=== PATIENT | male | born 1995 ===

== ENCOUNTER 2018-11-01 20:50 | Emergency (ER) | payer BC ==
[2018-11-01] MEDS ORDERED: Lidocaine 1% MPF ** 5 ML VIAL INJ ONE (21:11)
--- NOTE | 2018-11-01 21:27 | UC ---
Laceration HPI - HPI Summary HPI Summary: Patient is a 23yo male presenting with a left hand laceration that happened one hour ago while cutting tomatoes. Patient states it bled immediately but was able to stop within a few minutes. Denies pain. Denies decreased ROM. Denies decreased sensation. Denies numbness and tingling. He is unsure of his last tetanus booster and would like one today. - History Of Current Complaint Chief Complaint: UCLaceration Stated Complaint: HAND LACERATION Time Seen by Provider: 11/01/18 20:53 Hx Obtained From: Patient Severity: Mild Pain Intensity: 0 Pain Scale Used: 0-10 Numeric - Allergies/Home Medications Allergies/Adverse Reactions: Allergies Allergy/AdvReac Type Severity Reaction Status Date / Time No Known Allergies Allergy Verified 11/01/18 21:00 Home Medications: Home Medications NK [No Home Medications Reported] 11/01/18 [History Confirmed 11/01/18] PMH/Surg Hx/FS Hx/Imm Hx Previously Healthy: Yes - Surgical History Surgical History: Yes Surgery Procedure, Year, and Place: hernia repair - Family History Known Family History: Positive: Non-Contributory - Social History Occupation: Student Alcohol Use: Occasionally Substance Use Type: None Smoking Status (MU): Never Smoked Tobacco - Immunization History Most Recent Tetanus Shot: unknown Review of Systems All Other Systems Reviewed And Are Negative: No Constitutional: Positive: Negative Skin: Positive: Other - laceration to left palm Respiratory: Positive: Negative Cardiovascular: Positive: Negative Motor: Positive: Negative. Negative: Decreased ROM, Weakness Neurovascular: Positive: Negative. Negative: Decreased Sensation, Decreased Pulses Musculoskeletal: Positive: Negative. Negative: Arthralgia, Decreased ROM, Edema , Myalgia Neurological: Positive: Negative. Negative: Weakness, Paresthesia, Numbness Psychological: Positive: Negative Physical Exam Triage Information Reviewed: Yes Appearance: Well-Appearing, No Pain Distress, Well-Nourished Vital Signs: Initial Vital Signs Temp 98.5 F 11/01/18 20:56 Pulse 58 11/01/18 20:56 Resp 16 11/01/18 20:56 BP 116/72 11/01/18 20:56 Pulse Ox 100 11/01/18 20:56 Vital Signs Reviewed: Yes Eyes: Positive: Conjunctiva Clear ENT: Positive: Hearing grossly normal Neck: Positive: Supple Respiratory: Positive: No respiratory distress Cardiovascular: Positive: Pulses Normal, Brisk Capillary Refill Musculoskeletal Exam: Normal Musculoskeletal: Positive: Strength Intact, ROM Intact, No Edema Neurological: Positive: Alert Psychological Exam: Normal Psychological: Positive: Age Appropriate Behavior Skin Exam: Other - 1.5cm linear laceration noted on palmar surface of left hand. bleeding has stopped. Laceration Repair - Laceration Repair 1 Procedure Summary: Patient tolerated procedure well. Description: Linear Laceration Size After Repair: Length (cm) - 1.5 Type Injection: Local Anesthesia Used: 1.0% Lido Cleansing Completed Via Routine Prep: Yes Closure Material: Sutures - 2 sutures Closure Method: Single Layer Suture Of: Skin Suture Type: Prolene - 5-0 Laceration Course/Dx - Course/Dx Course Of Treatment: Patient received 2 sutures in his left palm. Discussed with patient to keep sutures clean and dry. Told to return or go to [facility] in 7-10 days for suture removal. Instructed to return if wound comes apart. Patient may take over the counter pain medications as directed for pain relief. Patient instructed to return or go to the emergency department if they notice any redness, swelling, fluid drainage, fever, or nausea and vomiting. Patient voiced understanding and agreed to treatment plan. - Diagnosis Provider Diagnosis: Hand laceration Discharge ED - Sign-Out/Discharge Documenting (check all that apply): Patient Departure All imaging exams completed and their final reports reviewed: No Studies - Discharge Plan Condition: Stable Disposition: HOME Patient Education Materials: Care For Your Stitches (ED), Laceration (ED) Referrals: Care [facility] [Outside] - If Needed Additional Instructions: You had 2 stitches placed in your hand tonight. As discussed, keep your stitches clean and dry. Your stitches will not absorb. Return or go to your [facility] in 7- 10 days to have your stitches removed. You may take over the counter pain medications as directed for pain relief. Return or go to the emergency department if you notice any redness, swelling, fluid drainage, fever, or nausea and vomiting. - Billing Disposition and Condition Condition: STABLE Disposition: Home - Attestation Statements Provider Attestation: I was available for consult. This patient was seen by the [facility]. The patient was not presented to, seen by, or examined by me. -Nicko
[2018-11-01] MEDS ORDERED: Tetan/Diph/Pertus SYR(Tdap)* 0.5 ML SYR(BOOSTRIX) use SYR IM ONE (21:30)
== END 2018-11-01 21:41 | disposition home or self-care (01) ==
LOC: UCEAST 20:50
DX: S61.412A Laceration without foreign body of left hand, initial encounter (principal); W26.0XXA Contact with knife, initial encounter; Y93.G1 Activity, food preparation and clean up; Y92.010 Kitchen of single-family (private) house as the place of occurrence of the external cause; Y99.8 Other external cause status
CPT/HCPCS: 12001; 90471; 90715; 99201; G0463